=== PATIENT | male | born 1970 | race Caucasian/White ===

== ENCOUNTER 2017-06-05 09:28 | Emergency (ER) | payer MEDICARE, MEDICAID ==
[2017-06-05] MEDS ORDERED: Acetaminophen TAB* 325 MG PO ONE (10:22)
--- NOTE | 2017-06-05 10:38 | UC ---
Headache HPI - HPI Summary HPI Summary: Pt is accompanied by pt career development facilitator from long term. DIRECTOR OF CULTURE reports that pt woke this moring with no c/o RILEY and proceeded with regualr morning routine, drank coffee and then began to c/o posterior/occipital RILEY. DIRECTOR OF CULTURE reports that pt' s BP at long term was recorded at 180/100. Pt also c/o dizziness, "stomach ache". DIRECTOR OF CULTURE denies pt exposure to meningitis, tick bites, or any other known infectious disease process. Pt has history of Cerebral shunt. Dneis recent injury, trauma or fever. Pt deines unilateral weakness, difficulty swallowing photophobia or nausea. DIRECTOR OF CULTURE reports pt has short term memory loss. Pt is not a reliable historian. - History Of Current Complaint Chief Complaint: Nithya Stated Complaint: HEADACHE,DIZZY,POSSIBLE HIGH BLOOD PRESSURE Time Seen by Provider: 06/05/17 10:01 Hx Obtained From: Family/Intranet Developer Onset/Duration: Sudden Onset, Lasting Hours Onset Of Symptoms: Gradual Timing: Constant Character: Dull, Unable To Describe Location of Headache: Diffuse Aggravating Factor: Other - unable to describe Allevating Factors: Other (Noted In Comments) - unable to describe Associated Signs And Symptoms: Positive: Dizziness - Risk Factors SAH Risk Factors: Negative Meningitis Risk Factors: Communal Living SDH Risk Factors: Male, Seizures Temporal Arteritis Risk Factors: Negative - Allergies/Home Medications Allergies/Adverse Reactions: Allergies Allergy/AdvReac Type Severity Reaction Status Date / Time Azithromycin Allergy Unknown Unknown Verified 06/05/17 09:45 Reaction Details Clarithromycin [From Biaxin] Allergy Unknown Unknown Verified 06/05/17 09:45 Reaction Details Influenza Vaccines Allergy Unknown Unknown Verified 06/05/17 09:45 Reaction Details Valproic Acid [From Depakote] Allergy Unknown Unknown Verified 06/05/17 09:45 Reaction Details Erythromycin Allergy Unknown Verified 06/05/17 09:45 Reaction Details Home Medications: Home Medications Acetaminophen [Eql Acetaminophen] 650 mg PO SEE INSTRUCTIONS 06/05/17 [History Confirmed 06/05/17] Al Hydrox/Mg Hydrox/John BULK* [Mylanta - BULK BOT*] 1 sunita PO SEE INSTRUCTIONS PRN 06/05/17 [History Confirmed 06/05/17] Bisacodyl SUPP* [Dulcolax Supp*] 10 mg PO DAILY PRN 06/05/17 [History Confirmed 06/05/17] Calcium [Oyster-Marques 500] 500 mg PO TID 06/05/17 [History Confirmed 06/05/17] Guaifenesin [Guiatuss] 200 mg PO SEE INSTRUCTIONS PRN 06/05/17 [History Confirmed 06/05/17] Hctffwgc-Tonhrbshxb-Jipzfezbg [Triple Antibiotic] 1 oin EX Q4HR PRN 06/05/17 [ History Confirmed 06/05/17] Nutritional Supplements [Nutritional Supplement] 1 liq PO SEE INSTRUCTIONS 06/05 [History Confirmed 06/05/17] Polyethylene Glycol-Propylene [Systane Ultra 0.4-0.3 %] 1 hailey OP BID 06/05/17 [ History Confirmed 06/05/17] See A R C Med List 06/05/17 06/05/17 [History] Skin Lotion 1 applic TOPICAL DAILY 06/05/17 [History Confirmed 06/05/17] Skin Oils [Baby Oil] 1 oil BOTH EARS WEEKLY 06/05/17 [History Confirmed 06/05/17 ] PMH/Surg Hx/FS Hx/Imm Hx Previously Healthy: No - see pmh GI/ History: Kidney Stones Neurological History: Seizures, Other - hydrocephalus Other Neurological History: hydrocephalus - Surgical History Surgical History: Yes Surgery Procedure, Year, and Place: SHUNT in place; see [facility] Consultation Form . NECK OR BACK PLATE. LITHOTRIPSY--06/2014 - Family History Known Family History: Positive: Other - unable to give [facility] - Social History Occupation: Disabled Lives: [employer] Alcohol Use: None Substance Use Type: None Smoking Status (MU): Never Smoked Tobacco Have You Smoked in the Last Year: No - Immunization History Most Recent Influenza Vaccination: NONE Most Recent Tetanus Shot: UP TO DATE Most Recent Pneumonia Vaccination: NONE Review of Systems Constitutional: Negative Skin: Negative Eyes: Negative ENT: Negative Respiratory: Negative Cardiovascular: Negative Gastrointestinal: Negative Genitourinary: Negative Motor: Decreased ROM - see PMH, Weakness - see PMH Neurovascular: Other - pt is non ambulatory, see PMH Musculoskeletal: Decreased ROM - see PMH Neurological: Headache, Weakness - see PMH Psychological: Negative All Other Systems Reviewed And Are Negative: Yes Physical Exam Triage Information Reviewed: Yes Completion Of Physical Exam Limited Due To: Other - pt has short term memory loss, has CVP shunt Appearance: Pain Distress - mild Vital Signs: Initial Vital Signs Temp 98.8 F 06/05/17 09:32 Pulse 102 06/05/17 09:32 Resp 18 06/05/17 09:32 BP 138/93 06/05/17 09:32 Pulse Ox 98 06/05/17 09:32 Eye Exam: Normal ENT Exam: Other ENT: Positive: Other: - cerumen bilateral Neck exam: Normal Respiratory Exam: Normal Cardiovascular Exam: Normal Abdominal Exam: Normal Musculoskeletal: Positive: Strength Limited @, ROM Limited @ Neurological Exam: Normal - see PMH Neurological: Positive: Alert Psychological Exam: Normal Skin: Positive: rashes - right anterior mid forearm mild erythematous, flat, pin prick rash Headache Course/Dx - Course Course Of Treatment: I spoke with the DIRECTOR OF CULTURE and sicussed the need for furhter evaluation at a higher level of care facility. Pt's RILEY did not improve with PO tylenol 650 mg. At time of exam, pt was in no acute distress, was Cardio vascular stable and denied one side weakness, vision changes or had change in baseline mentation. I recommend that the pt go to the closest ER for further evaluation. DIRECTOR OF CULTURE verbalized understanding and agreed to plan of care. - Differential Dx/Diagnosis Differential Diagnosis/HQI/PQRI: CVA, TIA, Meningitis, Tension Headache Provider Diagnoses: Headache. shunt obstruction Discharge - Discharge Plan Condition: Stable Disposition: HOME Patient Education Materials: Acute Headache (ED) Referrals: Vik Hollingsworth DO [Primary Care Provider] - Additional Instructions: It is recommended that you seek further evaluation at the closest emergency room.
[2017-06-05 11:12] VITALS: BP 141/84
== END 2017-06-05 11:28 | disposition home or self-care (01) ==
LOC: UCCORT 09:28
DX: R51 Headache (principal); T85.09XA Other mechanical complication of ventricular intracranial (communicating) shunt, initial encounter; R42 Dizziness and giddiness; R56.9 Unspecified convulsions; G91.9 Hydrocephalus, unspecified; Z87.442 Personal history of urinary calculi; Z88.1 Allergy status to other antibiotic agents; Z88.7 Allergy status to serum and vaccine
CPT/HCPCS: 99213; A9270-GY; G0463

== ENCOUNTER 2018-01-20 16:38 | Emergency (ER) | payer MEDICARE, MEDICAID ==
[2018-01-20 19:13] VITALS: BP 128/76
--- NOTE | 2018-01-20 19:19 | UC ---
Lower Extremity/Ankle HPI - HPI Summary HPI Summary: This 47-year-old level mentally disabled gentleman from the [facility] comes in tonight with 2 complaints 1 bilateral cerumen impaction and 2 he had a seizure on Friday and he has continued pain and swelling in his left foot and ankle. - History of Current Complaint Chief Complaint: UCLowerExtremity Stated Complaint: LEFT FOOT BRUISING Time Seen by Provider: 01/20/18 19:18 Hx Obtained From: Patient, Family/Australian Rules Footballer Onset/Duration: Sudden Onset, Lasting Days - 3, Still Present Severity Initially: Moderate Severity Currently: Moderate Pain Intensity: 7 Pain Scale Used: 0-10 Numeric Able to Bear Weight: No - at his baseline he is unable to weight-bear - Allergies/Home Medications Allergies/Adverse Reactions: Allergies Allergy/AdvReac Type Severity Reaction Status Date / Time azithromycin Allergy Unknown Verified 01/20/18 19:04 Reaction Details clarithromycin [From Biaxin] Allergy Unknown Verified 01/20/18 19:04 Reaction Details divalproex sodium Allergy Unknown Verified 01/20/18 19:04 [From Depakote] Reaction Details erythromycin base Allergy Unknown Verified 01/20/18 19:04 Reaction Details Influenza Virus Vaccines Allergy Unknown Verified 01/20/18 19:04 Reaction Details Home Medications: Home Medications Sulfamethox/Trimethoprim DS* [Bactrim DS 800/160 TAB*] 800 mg PO BID 01/20/18 [ History Confirmed 01/20/18] PMH/Surg Hx/FS Hx/Imm Hx Previously Healthy: No - MRDD Neurological History: Migraine Psychological History: Depression - Surgical History Surgical History: Yes Surgery Procedure, Year, and Place: SHUNT in place; see [facility] Consultation Form . NECK OR BACK PLATE. LITHOTRIPSY--06/2014 - Family History Known Family History: Positive: Other - unable to give [facility] - Social History Occupation: Disabled Lives: Intermediate Alcohol Use: None Substance Use Type: None Smoking Status (MU): Never Smoked Tobacco Have You Smoked in the Last Year: No - Immunization History Most Recent Influenza Vaccination: NONE Most Recent Tetanus Shot: UP TO DATE Most Recent Pneumonia Vaccination: NONE Review of Systems Constitutional: Negative Skin: Negative Eyes: Negative ENT: Ear Ache - bilateral cerumen impaction Respiratory: Negative Cardiovascular: Negative Gastrointestinal: Negative Genitourinary: Negative Motor: Negative Neurovascular: Negative Musculoskeletal: Arthralgia - left foot and ankle Neurological: Negative Psychological: Negative Is Patient Immunocompromised?: No All Other Systems Reviewed And Are Negative: Yes Physical Exam Triage Information Reviewed: Yes Appearance: Ill-Appearing - Chronically ill, Pain Distress - With palpation of left foot, Thin Vital Signs: Initial Vital Signs Temp 99.2 F 01/20/18 18:56 Pulse 81 01/20/18 18:56 Resp 24 01/20/18 18:56 BP 128/76 01/20/18 18:56 Pulse Ox 96 01/20/18 18:56 Vital Signs Reviewed: Yes Eye Exam: Normal Eyes: Positive: Conjunctiva Clear ENT Exam: Normal ENT: Positive: Normal ENT inspection, Hearing grossly normal, Other - Bilateral cerumen impactions. Negative: Nasal congestion, Nasal drainage Dental Exam: Normal Neck exam: Normal Neck: Positive: Supple, Nontender Respiratory Exam: Normal Respiratory: Positive: Chest non-tender, No respiratory distress, No accessory muscle use Cardiovascular Exam: Normal Cardiovascular: Positive: RRR, Pulses Normal, Brisk Capillary Refill Musculoskeletal Exam: Other Musculoskeletal: Positive: Strength Limited @, ROM Limited @ - Left foot which has some chronic limitations as well, Edema @ - Left foot Neurological Exam: Normal Neurological: Positive: Alert, Muscle Tone Normal Psychological Exam: Normal Skin Exam: Normal Diagnostics - Radiology No standard instances Xray Interpretation: Positive (See Comments) - Nondisplaced distal fibular fracture Radiology Interpretation Completed By: ED Physician, Radiologist Re-Evaluation - Re-Evaluation First Eval Change: Improved - Posterior splint applied neuro motor and circulation intact before and after application patient appears more comfortable with this protection Lower Extremity Course/Dx - Course Course Of Treatment: Rest ice elevation, Tylenol follow with orthopedic doctor first thing in the morning - Differential Dx/Diagnosis Provider Diagnoses: Nondisplaced distal left fractured fibula Discharge - Sign-Out/Discharge Documenting (check all that apply): Discharge - Discharge Plan Condition: Stable Disposition: HOME Patient Education Materials: Acetaminophen (By mouth), Leg Fracture (ED), R.I.C.E. Treatment (ED) Referrals: Yo Mcnamara MD [Medical Doctor] - 1 Day Vik Hollingsworth DO [Primary Care Provider] - - Billing Disposition and Condition Condition: STABLE Disposition: HOME
[2018-01-20] MEDS ORDERED: Acetaminophen TAB* 325 MG PO ONE (19:59)
--- NOTE | 2018-01-20 21:39 | RAD ---
INDICATION: Left ankle injury. TECHNIQUE: 2 views of the left ankle were obtained. FINDINGS: There is diffuse soft tissue swelling. 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 On the lateral view there is a focal area of cortical irregularity along the posterior aspect of the distal fibula possibly representing a nondisplaced fracture. IMPRESSION: DIFFUSE SOFT TISSUE SWELLING AND POSSIBLE NONDISPLACED FRACTURE OF THE DISTAL FIBULA.
--- NOTE | 2018-01-20 21:42 | RAD ---
INDICATION: Left foot injury. TECHNIQUE: 2 views of the left foot were obtained. FINDINGS: There is diffuse soft tissue swelling throughout the ankle and foot. 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 The bones appear osteopenic. On the lateral view there is an area of cortical irregularity along the posterior aspect of the distal fibula possibly representing a nondisplaced fracture. No other fractures are seen. There is osseous fusion of the talus and calcaneus. IMPRESSION: POSSIBLE NONDISPLACED FRACTURE OF THE DISTAL FIBULA.
== END 2018-01-20 22:05 | disposition home or self-care (01) ==
LOC: UCCORT 16:38
DX: S82.402A Unspecified fracture of shaft of left fibula, initial encounter for closed fracture (principal); F79 Unspecified intellectual disabilities; H61.23 Impacted cerumen, bilateral; Z88.1 Allergy status to other antibiotic agents; Z88.8 Allergy status to other drugs, medicaments and biological substances; Z88.7 Allergy status to serum and vaccine; X58.XXXA Exposure to other specified factors, initial encounter; Y92.9 Unspecified place or not applicable
CPT/HCPCS: 99213; A9270-GY; G0463

== ENCOUNTER 2023-04-14 08:45 | Observation (INO) ==
[2023-04-14] MEDS ORDERED: LORazepam 2 mg VIAL 1 ml IV PUSH ONE (09:47)
[2023-04-14] MEDS ORDERED: Lorazepam PYXIS KEY PRN ×2 (09:47→17:33)
[2023-04-14] MEDS ORDERED: LORazepam 2 mg VIAL 1 ml ONE (09:48)
[2023-04-14 09:49] LABS: ABS Eosinophils 0.2 10^3/uL (0.0-0.5); ABS Monocytes 0.4 10^3/uL (0.0-1.1); ABS Neutrophils 3.4 10^3/uL (1.5-7.6); ABS Nucleated RBC 0.01 10^3/ul; Eosinophil % 3.3 %; Hematocrit 35.1 % (38-53); Hemoglobin 11.8 g/dL (13.2-16.3); Lymphocyte % 19.8 %; Mean Corpuscular Hgb Conc 33.7 g/dL (31-36); Mean Corpuscular Volume 92.2 fL (80-97); Mean Platelet Volume 7.1 fL (7.5-11.2); Nucleated Red Blood Cells % 0.2 /100 WBC (0.0-0.4); Platelet Count 238 10^3/uL (150-450); Red Blood Count 3.81 10^6/uL (4.06-5.63); White Blood Count 4.9 10^3/uL (3.6-10.2)
[2023-04-14 10:06] LABS: Potassium 3.9 mmol/L (3.5-5.0)
[2023-04-14 10:07] LABS: Albumin/Globulin Ratio 1.3 (1-3); Calcium 9.6 mg/dL (8.6-10.3); Creatinine, Serum 0.81 mg/dL (0.67-1.17); Globulin 3.2 g/dL (2-4); Total Bilirubin 0.3 mg/dL (0.2-1.0); Total Protein 7.2 g/dL (6.4-8.9); eGFR CKD-EPI 104.8 (>60)
[2023-04-14 10:57] LABS: Urine Appearance Turbid; Urine Bilirubin Negative (Negative); Urine Blood 1+ (Negative); Urine Color Amber; Urine Glucose Negative (Negative); Urine Ketones Negative (Negative); Urine Nitrite Positive (Negative); Urine Protein 2+(100 mg/dL) (Negative); Urine Specific Gravity 1.027 (1.002-1.030); Urine Urobilinogen Negative (Negative)
[2023-04-14 11:06] LABS: Urine Bacteria 1+ (Absent); Urine Red Blood Cell 1+(3-5/hpf) (Absent); Urine Red Blood Cell Casts Present (Absent); Urine White Blood Cell 3+(>20/hpf) (Absent)
[2023-04-14] MEDS ORDERED: cefTRIAXone 2 gm/50 mL D5W 2 GM/50 ML BAG IV ONE (11:29)
[2023-04-14] MEDS ORDERED: Lactated Ringers 1000 ml BAG 1,000 ML IV ONE ×2 (12:22→13:12)
[2023-04-14 14:17] LABS: C Reactive Protein 11.19 mg/L (<8.01); Magnesium 1.7 mg/dL (1.9-2.7)
[2023-04-14] MEDS ORDERED: Magnesium Sulfate IV 3 GM in NS 0.9% 100 ml BAG 100 ML IVPB ONE (14:32)
[2023-04-14] MEDS: Enoxaparin 40 MG/0.4 ML SYR SUBCUT SCH (15:07)
[2023-04-14] MEDS ORDERED: LORazepam 2 mg VIAL 1 ml IM PRN (17:33)
[2023-04-14] MEDS: Pantoprazole VIAL 40 MG VIAL IV SCH (17:52)
[2023-04-14] MEDS ORDERED: levETIRAcetam 1000MG IVPREMIX 1,000 MG/100 ML BAG IVPB SCH (18:00)
[2023-04-14] MEDS ORDERED: guaiFENesin 100 mg/5 ml LIQ unit dose cup PO PRN (18:43)
[2023-04-14] MEDS ORDERED: Magnesium Hydroxide LIQ 30 ML UDC PO PRN (18:43)
[2023-04-14] MEDS ORDERED: Al Hydrox/Mg Hydrox/Simet LIQ 30 ML UDC PO PRN (18:43)
[2023-04-14] MEDS: NS 0.9% IV SCH (20:17)
[2023-04-14] MEDS: LACOSAMIDE IV SCH (20:17)
[2023-04-14] MEDS ORDERED: Hydrocortisone 0.5% OINT 1 TUBE TOPICAL SCH (21:00)
[2023-04-14] MEDS ORDERED: Senna/Docusate 8.6/50 mg (NF) TAB PO SCH (21:00)
[2023-04-14] MEDS: levETIRAcetam 1000MG IVPREMIX 1,000 MG/100 ML BAG IVPB SCH (23:17)
[2023-04-14] MEDS: Senna TAB 8.6 mg TAB PO SCH (23:19)
[2023-04-14] MEDS: Polyethylene Glycol 3350 17 GM PACKET PO SCH (23:19)
[2023-04-14] MEDS: Calcium/Vitamin D TAB 250/125 TAB PO SCH (23:19)
[2023-04-14] MEDS: Cholecalciferol (VIT D3) 1,000 unit TAB PO SCH (23:20)
[2023-04-14] MEDS: CMCS: LINACLOTIDE 72 MCG CAP (NF) PO SCH (23:20)
[2023-04-15 04:14] LABS: Hematocrit 28.3 % (38-53); Hemoglobin 9.7 g/dL (13.2-16.3); Mean Corpuscular Hemoglobin 31.7 pg (27-33); Mean Corpuscular Hgb Conc 34.4 g/dL (31-36); Mean Corpuscular Volume 92.2 fL (80-97); Platelet Count 206 10^3/uL (150-450); Red Blood Count 3.06 10^6/uL (4.06-5.63); Red Cell Distribution Width 14.3 % (12-17); White Blood Count 5.4 10^3/uL (3.6-10.2)
[2023-04-15 04:29] LABS: Creatinine, Serum 0.75 mg/dL (0.67-1.17); Potassium 3.6 mmol/L (3.5-5.0); eGFR CKD-EPI 107.2 (>60)
[2023-04-15] MEDS: levETIRAcetam 1000MG IVPREMIX 1,000 MG/100 ML BAG IVPB SCH (08:32)
[2023-04-15] MEDS: Pantoprazole VIAL 40 MG VIAL IV SCH (08:36)
[2023-04-15] MEDS: Polyethylene Glycol 3350 17 GM PACKET PO SCH (08:36)
[2023-04-15] MEDS: Senna TAB 8.6 mg TAB PO SCH ×2 (08:38→20:34)
[2023-04-15] MEDS: NS 0.9% IV SCH (08:49)
[2023-04-15] MEDS: LACOSAMIDE IV SCH (08:49)
[2023-04-15] MEDS ORDERED: cefTRIAXone 1 gm/50 mL D5W 1 GM/50 ML BAG IV SCH ×2 (09:00→10:30)
[2023-04-15] MEDS: CMCS: LINACLOTIDE 72 MCG CAP (NF) PO SCH (09:03)
[2023-04-15] MEDS: Cholecalciferol (VIT D3) 1,000 unit TAB PO SCH ×2 (09:05→20:13)
[2023-04-15] MEDS: Calcium/Vitamin D TAB 250/125 TAB PO SCH ×2 (09:34→20:12)
[2023-04-15] MEDS: CMCS: Mirabegron 25 mg ER TAB (NF) PO SCH (15:03)
[2023-04-15] MEDS: Enoxaparin 40 MG/0.4 ML SYR SUBCUT SCH (15:03)
[2023-04-15] MEDS ORDERED: Cefepime ADVAN 1 GM in NS 0.9% 50 ML 50 ML IVPB SCH (17:00)
[2023-04-15] MEDS ORDERED: levETIRAcetam 1000MG IVPREMIX 1,000 MG/100 ML BAG IVPB SCH (19:30)
[2023-04-15] MEDS: Cefepime 1 GM in Dextrose 1 GM/50 ML BAG IV SCH (20:46)
[2023-04-15] MEDS ORDERED: NS 0.9% IV SCH (21:00)
[2023-04-15] MEDS ORDERED: LACOSAMIDE IV SCH (21:00)
[2023-04-16] MEDS: Cefepime 1 GM in Dextrose 1 GM/50 ML BAG IV SCH (05:35)
[2023-04-16 06:37] LABS: ABS Eosinophils 0.4 10^3/uL (0.0-0.5); ABS Lymphocytes 1.5 10^3/uL (1.0-4.8); ABS Monocytes 0.5 10^3/uL (0.0-1.1); ABS Neutrophils 2.8 10^3/uL (1.5-7.6); ABS Nucleated RBC 0.01 10^3/ul; Eosinophil % 7.7 %; Hematocrit 29.4 % (38-53); Hemoglobin 10.2 g/dL (13.2-16.3); Lymphocyte % 28.4 %; Mean Corpuscular Hemoglobin 32.2 pg (27-33); Mean Corpuscular Hgb Conc 34.8 g/dL (31-36); Mean Corpuscular Volume 92.5 fL (80-97); Mean Platelet Volume 7.1 fL (7.5-11.2); Nucleated Red Blood Cells % 0.1 /100 WBC (0.0-0.4); Platelet Count 250 10^3/uL (150-450); Red Blood Count 3.18 10^6/uL (4.06-5.63); Red Cell Distribution Width 14.4 % (12-17); White Blood Count 5.1 10^3/uL (3.6-10.2)
[2023-04-16 06:52] LABS: Calcium 8.8 mg/dL (8.6-10.3); Creatinine, Serum 0.82 mg/dL (0.67-1.17); Potassium 3.9 mmol/L (3.5-5.0); eGFR CKD-EPI 104.4 (>60)
[2023-04-16] MEDS: Polyethylene Glycol 3350 17 GM PACKET PO SCH (09:22)
[2023-04-16] MEDS: Senna TAB 8.6 mg TAB PO SCH (09:23)
[2023-04-16] MEDS: Cholecalciferol (VIT D3) 1,000 unit TAB PO SCH (09:25)
[2023-04-16] MEDS: Calcium/Vitamin D TAB 250/125 TAB PO SCH (09:25)
[2023-04-16] MEDS: CMCS: LINACLOTIDE 72 MCG CAP (NF) PO SCH (09:26)
[2023-04-16] MEDS: Pantoprazole VIAL 40 MG VIAL IV SCH (09:39)
[2023-04-16 10:29] VITALS: BP 132/81
[2023-04-16] MEDS: CMCS: Mirabegron 25 mg ER TAB (NF) PO SCH (14:48)
[2023-04-16] MEDS: Enoxaparin 40 MG/0.4 ML SYR SUBCUT SCH (14:49)
[2023-04-17 16:53] LABS: Lamotrigine 10.2 mcg/mL (3.0-15.0)
[2023-04-18 12:30] LABS: Lacosamide 9.5 mcg/mL (1.0 - 10.0)
== END 2023-04-16 18:18 ==
LOC: ED 08:45 → EDHOLD 08:45 → SUATTDRO 12:29 → EDHOLD 04-15 08:11 → MEDTELE 04-15 09:51
PROVIDERS: ADMIT Internal Medicine Hematology & Oncology; ATTEND Hospitalist

== ENCOUNTER 2023-05-26 10:36 | Observation (INO) ==
[2023-05-26 11:57] LABS: ABS Eosinophils 0.4 10^3/uL (0.0-0.5); ABS Lymphocytes 1.2 10^3/uL (1.0-4.8); ABS Monocytes 0.6 10^3/uL (0.0-1.1); ABS Neutrophils 4.5 10^3/uL (1.5-7.6); ABS Nucleated RBC 0.01 10^3/ul; Eosinophil % 5.4 %; Hematocrit 39.7 % (38-53); Hemoglobin 13.3 g/dL (13.2-16.3); Lymphocyte % 17.6 %; Mean Corpuscular Hemoglobin 30.9 pg (27-33); Mean Corpuscular Hgb Conc 33.4 g/dL (31-36); Mean Corpuscular Volume 92.4 fL (80-97); Mean Platelet Volume 7.1 fL (7.5-11.2); Nucleated Red Blood Cells % 0.1 /100 WBC (0.0-0.4); Platelet Count 268 10^3/uL (150-450); Red Cell Distribution Width 13.9 % (12-17); White Blood Count 6.7 10^3/uL (3.6-10.2)
[2023-05-26 12:13] LABS: Albumin 4.3 g/dL (3.2-5.2); Albumin/Globulin Ratio 1.3 (1-3); Calcium 9.6 mg/dL (8.6-10.3); Creatinine, Serum 0.88 mg/dL (0.67-1.17); Globulin 3.4 g/dL (2-4); Magnesium 1.7 mg/dL (1.9-2.7); Potassium 4.1 mmol/L (3.5-5.0); Total Bilirubin 0.3 mg/dL (0.2-1.0); Total Protein 7.7 g/dL (6.4-8.9); eGFR CKD-EPI 101.5 (>60)
[2023-05-26 12:16] LABS: INR 1.02 (0.83-1.13)
[2023-05-26 13:34] LABS: Urine Appearance Cloudy; Urine Bilirubin Negative (Negative); Urine Blood Negative (Negative); Urine Color Amber; Urine Glucose Negative (Negative); Urine Ketones Negative (Negative); Urine Nitrite Positive (Negative); Urine Protein 2+(100 mg/dL) (Negative); Urine Specific Gravity 1.025 (1.002-1.030); Urine Urobilinogen Negative (Negative)
[2023-05-26 13:47] LABS: Urine Bacteria 1+ (Absent); Urine Granular Casts Present (Absent); Urine Red Blood Cell 2+(6-10/hpf) (Absent); Urine White Blood Cell 3+(>20/hpf) (Absent)
[2023-05-26] MEDS ORDERED: NS 0.9% 1000 ml BAG 1,000 ML IV ONE (14:16)
[2023-05-26] MEDS ORDERED: Magnesium Sulfate IV 1GM/100ML 1 GM/100 ML BAG IV ONE (14:26)
[2023-05-26] MEDS ORDERED: Enoxaparin 40 MG/0.4 ML SYR SUBCUT SCH (18:00)
[2023-05-26] MEDS ORDERED: LAMOTRIGINE 250 MG PO SCH (21:00)
[2023-05-26] MEDS: CMCS:Levetiracetam XR 500 MG TAB.XR PO SCH (22:09)
[2023-05-26] MEDS: CMCS: Lamotrigine XR 200 mg TAB (NF) PO SCH (23:09)
[2023-05-26] MEDS: LAMOTRIGINE 50 MG PO SCH (23:09)
[2023-05-27 06:00] LABS: Hematocrit 32.7 % (38-53); Hemoglobin 11.2 g/dL (13.2-16.3); Mean Corpuscular Hemoglobin 31.7 pg (27-33); Mean Corpuscular Hgb Conc 34.2 g/dL (31-36); Mean Corpuscular Volume 92.6 fL (80-97); Platelet Count 225 10^3/uL (150-450); Red Blood Count 3.53 10^6/uL (4.06-5.63); Red Cell Distribution Width 13.7 % (12-17); White Blood Count 5.8 10^3/uL (3.6-10.2)
[2023-05-27 06:18] LABS: Calcium 8.9 mg/dL (8.6-10.3); Creatinine, Serum 0.82 mg/dL (0.67-1.17); Magnesium 1.7 mg/dL (1.9-2.7); Potassium 4.1 mmol/L (3.5-5.0); eGFR CKD-EPI 103.7 (>60)
[2023-05-27] MEDS: LAMOTRIGINE 50 MG PO SCH (09:03)
[2023-05-27] MEDS: CMCS: Lamotrigine XR 200 mg TAB (NF) PO SCH (09:04)
[2023-05-27] MEDS: CMCS:Levetiracetam XR 500 MG TAB.XR PO SCH (09:04)
[2023-05-27 14:35] VITALS: BP 128/70
[2023-05-27] MEDS ORDERED: CMCS:Mirabegron 25 mg ER TAB (NF) PO SCH (15:00)
[2023-05-28 15:16] LABS: Levetiracetam 55.2 mcg/mL
[2023-05-29 13:12] LABS: Lacosamide 14.9 mcg/mL (1.0 - 10.0)
== END 2023-05-27 18:00 | disposition home or self-care (01) ==
LOC: EDHOLD 10:36 → ED 10:36 → MEDTELE 19:23
PROVIDERS: ADMIT Internal Medicine; ATTEND Internal Medicine

== ENCOUNTER 2024-10-13 11:08 | Inpatient (IN) ==
[2024-10-13] MEDS: cefTRIAXone 1 gm/50 mL D5W 1 GM/50 ML BAG IV SCH (18:39)
[2024-10-13] MEDS: LaCOSAMide VIAL 200 MG in NS 0.9% 50 ML 50 ML IV SCH (19:25)
[2024-10-13] MEDS: Phenytoin IV 50 MG/ML 2 ML VIAL (100 MG) IVPB SCH (19:27)
[2024-10-13] MEDS: NS 0.9% 50 ML 50 ML ONE (19:27)
[2024-10-13] MEDS: levETIRAcetam 1000MG IVPREMIX 1,000 MG/100 ML BAG IVPB SCH (20:14)
[2024-10-13] MEDS: Fosphenytoin 100 MG in NS 0.9% 50 ML IVPB SCH (21:43)
[2024-10-13] MEDS: Pantoprazole VIAL 40 MG VIAL IV SCH (21:43)
[2024-10-13] MEDS: Heparin 5000 UNITS/ML 1 mL VIAL SUBCUT SCH (21:43)
[2024-10-13] MEDS: metroNIDAZOLE IV 500 MG/100ML 500 MG/100 ML BAG IVPB SCH (21:44)
[2024-10-14] MEDS: Digoxin IV 0.5 MG/2 ML AMP (0.25 MG/ML) ONE (05:10)
[2024-10-14] MEDS: Fosphenytoin 100 MG in NS 0.9% 50 ML IVPB SCH (07:00)
[2024-10-14 07:09] LABS: ABS Eosinophils 0.6 10^3/uL (0.0-0.5); ABS Lymphocytes 1.5 10^3/uL (1.0-4.8); ABS Monocytes 0.8 10^3/uL (0.0-1.1); ABS Neutrophils 5.4 10^3/uL (1.5-7.6); Eosinophil % 6.9 %; Hematocrit 34.7 % (38-53); Hemoglobin 11.8 g/dL (13.2-16.3); Lymphocyte % 18.2 %; Mean Corpuscular Hemoglobin 31.8 pg (27-33); Mean Corpuscular Hgb Conc 34.1 g/dL (31-36); Mean Corpuscular Volume 93.5 fL (80-97); Platelet Count 284 10^3/uL (150-450); Red Blood Count 3.71 10^6/uL (4.06-5.63); White Blood Count 8.3 10^3/uL (3.6-10.2)
[2024-10-14 07:23] LABS: Calcium 8.5 mg/dL (8.6-10.3); Creatinine, Serum 0.63 mg/dL (0.67-1.17); Magnesium 1.6 mg/dL (1.9-2.7); Potassium 3.3 mmol/L (3.5-5.0); eGFR CKD-EPI 111.6 (>60)
[2024-10-14] MEDS: LaCOSAMide VIAL 200 MG in NS 0.9% 50 ML 50 ML IV SCH (08:17)
[2024-10-14] MEDS: Magnesium Sulfate 2 gm BAG 2 GM/50 ML BAG IVPB ONE (08:24)
[2024-10-14 09:56] LABS: INR 1.15 (0.85-1.14)
[2024-10-14] MEDS: KCL 20 MEQ/100 ML IVPREMIX 20 MEQ/100 ML BAG IV SCH (09:56)
[2024-10-14 10:23] LABS: Albumin 3.2 g/dL (3.5-5.7); Albumin/Globulin Ratio 1.2 (1-3); Calcium 8.6 mg/dL (8.6-10.3); Creatinine, Serum 0.67 mg/dL (0.67-1.17); Globulin 2.7 g/dL (2-4); Potassium 3.3 mmol/L (3.5-5.0); Total Bilirubin 0.3 mg/dL (0.2-1.0); Total Protein 5.9 g/dL (6.4-8.9); eGFR CKD-EPI 109.6 (>60)
[2024-10-14] MEDS: Magnesium Sulfate IV 1GM/100ML 1 GM/100 ML BAG IV ONE (10:23)
[2024-10-14 10:38] LABS: TSH Ultra Thyroid Stim Horm 0.64 mcIU/mL (0.34-5.60)
[2024-10-14] MEDS: hydrALAZINE 20 mg/ml 1 ML Vial IV IV SLOW PU PRN (22:34)
[2024-10-14] MEDS ORDERED: Lorazepam PYXIS KEY PRN (23:38)
[2024-10-14] MEDS: LORazepam 2 mg VIAL 1 ml IV PUSH PRN (23:54)
[2024-10-15 05:03] LABS: ABS Eosinophils 0.4 10^3/uL (0.0-0.5); ABS Lymphocytes 1.3 10^3/uL (1.0-4.8); ABS Monocytes 0.9 10^3/uL (0.0-1.1); ABS Neutrophils 5.5 10^3/uL (1.5-7.6); ABS Nucleated RBC 0.01 10^3/ul; Eosinophil % 4.5 %; Hematocrit 35.2 % (38-53); Hemoglobin 11.9 g/dL (13.2-16.3); Lymphocyte % 16.5 %; Mean Corpuscular Hemoglobin 31.8 pg (27-33); Mean Corpuscular Hgb Conc 33.9 g/dL (31-36); Mean Platelet Volume 6.9 fL (7.5-11.2); Nucleated Red Blood Cells % 0.1 %/100WBC (0.0-0.8); Platelet Count 281 10^3/uL (150-450); Red Blood Count 3.75 10^6/uL (4.06-5.63); Red Cell Distribution Width 14.1 % (12-17); White Blood Count 8.2 10^3/uL (3.6-10.2)
[2024-10-15 05:25] LABS: Calcium 8.4 mg/dL (8.6-10.3); Creatinine, Serum 0.68 mg/dL (0.67-1.17); Magnesium 1.7 mg/dL (1.9-2.7); Phenytoin 15.5 mcg/mL (10-20); Potassium 3.7 mmol/L (3.5-5.0); eGFR CKD-EPI 109.1 (>60)
[2024-10-15] MEDS: Magnesium Sulfate 2 gm BAG 2 GM/50 ML BAG IVPB ONE (08:24)
[2024-10-15] MEDS: D5W KCl 40 MEQ 1000 ml 1,000 ML IV SCH (08:44)
[2024-10-15] MEDS: Potassium Chloride IV 40 MEQ in D5W 1000 ml BAG 980 ML IVPB SCH (09:46)
[2024-10-15] MEDS: D5LR 1000 ml BAG 1,000 ML IV SCH (11:09)
[2024-10-15] MEDS: levETIRAcetam 1000MG IVPREMIX 1,000 MG/100 ML BAG IVPB ONE (11:29)
[2024-10-15] MEDS: Diatrizoate Meg/Sod(CONTRAST) 30 ML ORAL.SOLN PO ONE (14:18)
[2024-10-15] MEDS: diazePAM INJ CARPUJECT 5 MG/ML SYRINGE IV SCH (15:35)
[2024-10-15 18:23] LABS: Calcium 8.6 mg/dL (8.6-10.3); Creatinine, Serum 0.66 mg/dL (0.67-1.17); Potassium 3.6 mmol/L (3.5-5.0); eGFR CKD-EPI 110.1 (>60)
[2024-10-15] MEDS: [UNRECOGNIZED DRUG - OTHER] IVPB SCH (21:40)
[2024-10-15] MEDS: LEVETIRACETAM IVPB SCH (21:40)
[2024-10-16 09:21] LABS: ABS Basophils 0.1 10^3/uL (0.0-0.1); ABS Eosinophils 0.4 10^3/uL (0.0-0.5); ABS Monocytes 0.8 10^3/uL (0.0-1.1); ABS Neutrophils 6.3 10^3/uL (1.5-7.6); ABS Nucleated RBC 0.01 10^3/ul; Eosinophil % 4.5 %; Hematocrit 35.9 % (38-53); Lymphocyte % 12.1 %; Mean Corpuscular Hemoglobin 31.1 pg (27-33); Mean Corpuscular Hgb Conc 33.4 g/dL (31-36); Mean Corpuscular Volume 93.1 fL (80-97); Mean Platelet Volume 6.8 fL (7.5-11.2); Nucleated Red Blood Cells % 0.1 %/100WBC (0.0-0.8); Platelet Count 285 10^3/uL (150-450); Red Blood Count 3.86 10^6/uL (4.06-5.63); Red Cell Distribution Width 14.6 % (12-17); White Blood Count 8.5 10^3/uL (3.6-10.2)
[2024-10-16 10:08] LABS: Calcium 8.2 mg/dL (8.6-10.3); Creatinine, Serum 0.61 mg/dL (0.67-1.17); Magnesium 1.6 mg/dL (1.9-2.7); Phenytoin 16.4 mcg/mL (10-20); Potassium 3.3 mmol/L (3.5-5.0); eGFR CKD-EPI 112.7 (>60)
[2024-10-16] MEDS: D5LR 1000 ml BAG 1,000 ML IV SCH (11:19)
[2024-10-16] MEDS: KCL 20 MEQ/100 ML IVPREMIX 20 MEQ/100 ML BAG IV ONE (11:35)
[2024-10-16 12:14] LABS: Levetiracetam 58.3 mcg/mL
[2024-10-16] MEDS: Acetaminophen IV 1 GM/100ML 1,000 MG/100 ML BAG IV PRN (12:40)
[2024-10-16] MEDS: diazePAM INJ CARPUJECT 5 MG/ML SYRINGE IV SCH (22:03)
[2024-10-16 23:39] LABS: Lacosamide 2.6 mcg/mL (1.0 - 10.0)
[2024-10-17] MEDS: Orphenadrine Citrate INJ 30 mg/ml 2 ml VIAL (60 mg) IV ONE (00:20)
[2024-10-17 05:44] LABS: ABS Basophils 0.1 10^3/uL (0.0-0.1); ABS Eosinophils 0.5 10^3/uL (0.0-0.5); ABS Lymphocytes 1.2 10^3/uL (1.0-4.8); ABS Monocytes 0.7 10^3/uL (0.0-1.1); ABS Neutrophils 4.8 10^3/uL (1.5-7.6); Eosinophil % 7.2 %; Hematocrit 34.1 % (38-53); Hemoglobin 11.6 g/dL (13.2-16.3); Lymphocyte % 16.3 %; Mean Corpuscular Hemoglobin 31.9 pg (27-33); Mean Corpuscular Volume 93.7 fL (80-97); Mean Platelet Volume 6.8 fL (7.5-11.2); Platelet Count 248 10^3/uL (150-450); Red Blood Count 3.64 10^6/uL (4.06-5.63); Red Cell Distribution Width 14.5 % (12-17); White Blood Count 7.2 10^3/uL (3.6-10.2)
[2024-10-17 06:02] LABS: Creatinine, Serum 0.61 mg/dL (0.67-1.17); Magnesium 1.5 mg/dL (1.9-2.7); Phenytoin 17.6 mcg/mL (10-20); Potassium 3.6 mmol/L (3.5-5.0); eGFR CKD-EPI 112.7 (>60)
[2024-10-17] MEDS: Dextrose 50% Syringe 50 ml 25 GM/50 ML SYRINGE IV PUSH PRN (07:14)
[2024-10-17] MEDS: KCL 20 MEQ/100 ML IVPREMIX 20 MEQ/100 ML BAG IV SCH (09:09)
[2024-10-17] MEDS: [UNRECOGNIZED DRUG - OTHER] PO SCH (10:09)
[2024-10-17] MEDS: Magnesium Sulf 4 GM/100 ML IV 4,000 MG/100 ML BAG IVPB ONE (10:52)
[2024-10-17 17:07] LABS: Levetiracetam 18.5 mcg/mL
[2024-10-17] MEDS: Enoxaparin 40 MG/0.4 ML SYR SUBCUT SCH (19:39)
[2024-10-17] MEDS: Lidocaine PATCH 5% PATCH TRANSDERM SCH (20:21)
[2024-10-18 08:58] LABS: ABS Basophils 0.1 10^3/uL (0.0-0.1); ABS Eosinophils 0.4 10^3/uL (0.0-0.5); ABS Lymphocytes 0.9 10^3/uL (1.0-4.8); ABS Monocytes 0.5 10^3/uL (0.0-1.1); ABS Neutrophils 3.8 10^3/uL (1.5-7.6); ABS Nucleated RBC 0.01 10^3/ul; Eosinophil % 7.8 %; Hematocrit 34.6 % (38-53); Hemoglobin 11.6 g/dL (13.2-16.3); Lymphocyte % 16.4 %; Mean Corpuscular Hemoglobin 31.5 pg (27-33); Mean Corpuscular Hgb Conc 33.5 g/dL (31-36); Mean Corpuscular Volume 94.1 fL (80-97); Mean Platelet Volume 6.8 fL (7.5-11.2); Nucleated Red Blood Cells % 0.1 %/100WBC (0.0-0.8); Platelet Count 265 10^3/uL (150-450); Red Blood Count 3.68 10^6/uL (4.06-5.63); Red Cell Distribution Width 14.1 % (12-17); White Blood Count 5.7 10^3/uL (3.6-10.2)
[2024-10-18 09:20] LABS: Anion Gap 9 mmol/L (2-16); Blood Urea Nitrogen 7 mg/dL (6-24); CO2 Carbon Dioxide 29 mmol/L (22-32); Calcium 7.9 mg/dL (8.6-10.3); Chloride 104 mmol/L (101-111); Creatinine, Serum 0.53 mg/dL (0.67-1.17); Glucose 77 mg/dL (70-100); Magnesium 1.8 mg/dL (1.9-2.7); Phenytoin 16.5 mcg/mL (10-20); Sodium 142 mmol/L (135-145); eGFR CKD-EPI 117.6 (>60)
[2024-10-18 11:14] LABS: Lacosamide 4.7 mcg/mL (1.0 - 10.0)
[2024-10-18 16:18] LABS: Levetiracetam 30.2 mcg/mL
[2024-10-19 06:24] LABS: ABS Eosinophils 0.4 10^3/uL (0.0-0.5); ABS Lymphocytes 1.1 10^3/uL (1.0-4.8); ABS Monocytes 0.5 10^3/uL (0.0-1.1); ABS Neutrophils 2.5 10^3/uL (1.5-7.6); Eosinophil % 9.3 %; Hematocrit 33.4 % (38-53); Hemoglobin 11.2 g/dL (13.2-16.3); Lymphocyte % 24.2 %; Mean Corpuscular Hgb Conc 33.4 g/dL (31-36); Mean Corpuscular Volume 92.9 fL (80-97); Mean Platelet Volume 6.8 fL (7.5-11.2); Platelet Count 262 10^3/uL (150-450); White Blood Count 4.5 10^3/uL (3.6-10.2)
[2024-10-19 06:45] LABS: Calcium 7.9 mg/dL (8.6-10.3); Creatinine, Serum 0.57 mg/dL (0.67-1.17); Magnesium 1.6 mg/dL (1.9-2.7); Potassium 3.7 mmol/L (3.5-5.0); eGFR CKD-EPI 115.1 (>60)
[2024-10-19] MEDS: Magnesium Sulfate 2 gm BAG 2 GM/50 ML BAG IVPB ONE (09:53)
[2024-10-19] MEDS: Potassium Chloride LIQUID 20 MEQ/15 ML LIQUID PO ONE (10:34)
[2024-10-19] MEDS: levETIRAcetam 1000MG IVPREMIX 1,000 MG/100 ML BAG IVPB SCH (22:09)
[2024-10-19] MEDS: LAMOTRIGINE 100 MG PO SCH (22:11)
[2024-10-20 14:32] LABS: ABS Eosinophils 0.4 10^3/uL (0.0-0.5); ABS Lymphocytes 0.9 10^3/uL (1.0-4.8); ABS Monocytes 0.5 10^3/uL (0.0-1.1); ABS Neutrophils 2.5 10^3/uL (1.5-7.6); Eosinophil % 9.9 %; Hematocrit 36.3 % (38-53); Hemoglobin 12.5 g/dL (13.2-16.3); Lymphocyte % 21.4 %; Mean Corpuscular Hemoglobin 31.8 pg (27-33); Mean Corpuscular Hgb Conc 34.4 g/dL (31-36); Mean Corpuscular Volume 92.5 fL (80-97); Mean Platelet Volume 6.5 fL (7.5-11.2); Nucleated Red Blood Cells % 0.1 %/100WBC (0.0-0.8); Platelet Count 313 10^3/uL (150-450); Red Blood Count 3.93 10^6/uL (4.06-5.63); Red Cell Distribution Width 14.6 % (12-17); White Blood Count 4.3 10^3/uL (3.6-10.2)
[2024-10-20 14:58] LABS: Calcium 8.6 mg/dL (8.6-10.3); Carbamazepine 3.4 mcg/mL (4.0-12.0); Creatinine, Serum 0.75 mg/dL (0.67-1.17); Phenytoin 12.1 mcg/mL (10-20); Potassium 4.1 mmol/L (3.5-5.0); eGFR CKD-EPI 105.9 (>60)
[2024-10-20] MEDS ORDERED: FOSPHENYTOIN IVPB SCH (22:46)
[2024-10-20] MEDS ORDERED: NS 0.9% IVPB SCH (22:46)
[2024-10-20] MEDS: FOSPHENYTOIN IVPB SCH ×2 (22:48→23:41)
[2024-10-20] MEDS: NS 0.9% IVPB SCH ×2 (22:48→23:41)
[2024-10-21 09:43] LABS: Anion Gap 6 mmol/L (2-16); Blood Urea Nitrogen 13 mg/dL (6-24); CO2 Carbon Dioxide 30 mmol/L (22-32); Calcium 8.8 mg/dL (8.6-10.3); Chloride 102 mmol/L (101-111); Creatinine, Serum 0.74 mg/dL (0.67-1.17); Glucose 117 mg/dL (70-100); Magnesium 1.7 mg/dL (1.9-2.7); Sodium 138 mmol/L (135-145); eGFR CKD-EPI 106.3 (>60)
[2024-10-21 11:10] LABS: Levetiracetam 49.7 mcg/mL
[2024-10-21 11:56] LABS: Lacosamide 4.9 mcg/mL (1.0 - 10.0)
[2024-10-21 11:56] LABS: Lacosamide 9.5 mcg/mL (1.0 - 10.0)
[2024-10-21 11:56] LABS: Lacosamide 8.5 mcg/mL (1.0 - 10.0)
[2024-10-21 14:21] LABS: ABS Eosinophils 0.5 10^3/uL (0.0-0.5); ABS Lymphocytes 1.2 10^3/uL (1.0-4.8); ABS Monocytes 0.5 10^3/uL (0.0-1.1); ABS Neutrophils 3.7 10^3/uL (1.5-7.6); ABS Nucleated RBC 0.01 10^3/ul; Eosinophil % 7.7 %; Hematocrit 36.6 % (38-53); Hemoglobin 12.6 g/dL (13.2-16.3); Lymphocyte % 20.1 %; Mean Corpuscular Hgb Conc 34.3 g/dL (31-36); Mean Corpuscular Volume 93.4 fL (80-97); Mean Platelet Volume 6.8 fL (7.5-11.2); Nucleated Red Blood Cells % 0.1 %/100WBC (0.0-0.8); Platelet Count 359 10^3/uL (150-450); Red Blood Count 3.92 10^6/uL (4.06-5.63); Red Cell Distribution Width 14.2 % (12-17); White Blood Count 5.9 10^3/uL (3.6-10.2)
[2024-10-22 08:24] LABS: ABS Eosinophils 0.6 10^3/uL (0.0-0.5); ABS Lymphocytes 1.6 10^3/uL (1.0-4.8); ABS Monocytes 0.5 10^3/uL (0.0-1.1); ABS Neutrophils 3.3 10^3/uL (1.5-7.6); Hematocrit 37.7 % (38-53); Hemoglobin 12.8 g/dL (13.2-16.3); Lymphocyte % 25.8 %; Mean Corpuscular Hemoglobin 31.9 pg (27-33); Mean Corpuscular Hgb Conc 34.1 g/dL (31-36); Mean Corpuscular Volume 93.5 fL (80-97); Mean Platelet Volume 6.6 fL (7.5-11.2); Nucleated Red Blood Cells % 0.1 %/100WBC (0.0-0.8); Platelet Count 396 10^3/uL (150-450); Red Blood Count 4.03 10^6/uL (4.06-5.63); Red Cell Distribution Width 14.8 % (12-17); White Blood Count 6.1 10^3/uL (3.6-10.2)
[2024-10-22] MEDS ORDERED: LAMOTRIGINE 100 MG PO SCH (09:00)
[2024-10-22] MEDS ORDERED: CMC:Lamotrigine XR 50 mg TAB (NF) PO SCH (09:00)
[2024-10-22 09:22] LABS: C Reactive Protein 28.11 mg/L (<8.01); Creatinine, Serum 0.76 mg/dL (0.67-1.17); Magnesium 1.7 mg/dL (1.9-2.7); Potassium 4.7 mmol/L (3.5-5.0); eGFR CKD-EPI 105.5 (>60)
[2024-10-22 11:41] LABS: Lacosamide 6.8 mcg/mL (1.0 - 10.0)
[2024-10-22] MEDS: Lamotrigine XR 200 mg TAB (NF) PO SCH (15:25)
[2024-10-22] MEDS: Magnesium Sulfate 2 gm BAG 2 GM/50 ML BAG IVPB ONE (15:26)
[2024-10-22] MEDS: Amoxicillin/Clavul 875/125 TAB (Augmentin 875 tab) PO SCH (22:01)
[2024-10-23] MEDS: CMCS:Lamotrigine XR 200 mg TAB (NF) PO SCH (08:57)
[2024-10-23] MEDS ORDERED: Lamotrigine XR 200 mg TAB (NF) PO SCH (09:00)
[2024-10-23] MEDS ORDERED: LAMOTRIGINE 250 MG PO SCH (09:00)
[2024-10-23] MEDS: Lamotrigine XR 50 mg TAB (NF) PO SCH (10:56)
[2024-10-23 23:37] LABS: Lacosamide 4.9 mcg/mL (1.0 - 10.0)
[2024-10-24] MEDS: Lactated Ringers 1000 ml BAG 1,000 ML IV ONE (02:48)
[2024-10-25 06:23] LABS: ABS Basophils 0.1 10^3/uL (0.0-0.1); ABS Eosinophils 0.7 10^3/uL (0.0-0.5); ABS Lymphocytes 1.8 10^3/uL (1.0-4.8); ABS Monocytes 0.6 10^3/uL (0.0-1.1); ABS Neutrophils 2.9 10^3/uL (1.5-7.6); Eosinophil % 10.9 %; Hematocrit 35.4 % (38-53); Hemoglobin 11.9 g/dL (13.2-16.3); Lymphocyte % 29.6 %; Mean Corpuscular Hemoglobin 31.3 pg (27-33); Mean Corpuscular Hgb Conc 33.5 g/dL (31-36); Mean Corpuscular Volume 93.2 fL (80-97); Mean Platelet Volume 6.6 fL (7.5-11.2); Platelet Count 450 10^3/uL (150-450); Red Cell Distribution Width 14.7 % (12-17); White Blood Count 6.1 10^3/uL (3.6-10.2)
[2024-10-25 06:37] LABS: Calcium 8.7 mg/dL (8.6-10.3); Creatinine, Serum 0.94 mg/dL (0.67-1.17); Magnesium 1.8 mg/dL (1.9-2.7); Potassium 4.5 mmol/L (3.5-5.0); eGFR CKD-EPI 95.1 (>60)
[2024-10-25 09:26] VITALS: BP 107/67
[2024-10-26 11:28] LABS: Lacosamide 5.7 mcg/mL (1.0 - 10.0)
== END 2024-10-25 17:55 | DRG 389 ==
LOC: SUATTDRO 16:54 → ICU 16:54 → MEDTELE 10-18 17:27
PROVIDERS: ADMIT Internal Medicine; ATTEND Family Medicine